=== PATIENT | female | born 1930 | race Caucasian/White ===

== ENCOUNTER 2016-12-06 21:23 | Observation (INO) | payer MEDICARE, OTHER ==
[~2016-12-06] VITALS: Ht 162.6 cm; Wt 74.3 kg
[2016-12-06 21:51] VITALS: BP 185/93; PULSE 66; RESP 16; O2SAT 97
--- NOTE | 2016-12-06 22:25 | ED.REPORT ---
HPI-General Illness Date of Service Dec 06, 2016 ED Provider: Dr. Anthony Ching D.O. An 86 year old female with a history of hypertension, hyperlipidemia, and recent bladder prolapse presents to the ED with nausea and vomiting onset 1630 today. The emesis primarily consists of mucous. The patient also reports urinary incontinence and chronic right-sided nerve pain secondary to a shingles infection four years ago. She recently began taking oxybutynin, with her first dose at 1430 today. Nursing Notes Stated Complaint: VOMITING Chief Complaint: General Complaint Nursing Notes Reviewed: Yes Allergies: Coded Allergies: Penicillins (Verified Allergy, Unknown, 12/06/16) venom-honey bee (Verified Allergy, Unknown, 12/06/16) Scheduled Aspirin Chew (Aspirin Chew) 81 Mg Chew 81 MG PO DAILY Cholecalciferol (Vitamin D3) (Vitamin D3) 2,000 Unit Tablet 2,000 UNIT PO DAILY Cyanocobalamin (Vitamin B-12) (Vitamin B-12) 1,000 Mcg Tablet 1,000 MCG PO DAILY Gabapentin (Gabapentin) 300 Mg Capsule 300 MG PO HS Multivits-Min/FA/Lycopene/Lut (Centrum Silver Tablet) 1 Each Tablet 1 EACH PO DAILY Nadolol (Nadolol) 20 Mg Tablet 20 MG PO DAILY General Time Seen by MD: 22:25 Chief Complaint Vomiting Hx Obtained From: Patient Arrived By: Walk-in Sudden in Onset?: Yes Onset Occurred: 5 - 8 hours ago Symptom Duration: Since onset Severity: Current: No pain currently Severity: Maximum: No pain Associated with: Reports: Pain (Right-sided nerve pain), Denies: Fever Pertinent Negative: Relieved by nothing Context Related History: Reports Recent medication Recent Healthcare: No recent doctor visit Similar Sx Previous: No Past Medical History Past Medical History Bladder prolapse Reports: Hyperlipidemia, Hypertension Past Surgical History None reported Family History noncontributory Smoking History Unknown if Ever Smoker Social History Other Social History: Good social support, Local resident Ambulatory Status Independent Review of Systems + right-sided nerve pain Full Review of Systems Constitutional: Denies: Fever Respiratory: Denies: Non-productive cough, Shortness of breath GI: Reports: Nausea, Vomiting Female: Reports: Incontinence Complete sys rev & neg: except as marked. Physical Exam Vital Signs Vital Signs Date Time Temp Pulse Resp B/P Pulse Ox O2 Delivery O2 Flow Rate FiO2 12/07/16 00:25 36.8 59 16 148/87 100 Room Air 12/06/16 21:51 36.7 66 16 185/93 97 Room Air Initial VS: Reviewed Head / Eyes: Atraumatic, Normocephalic ENT: Conjunctiva normal, No scleral icterus Neck: Supple, Full range of motion Respiratory: Breath sounds normal, Clear to auscultation, No respiratory distress Cardiovascular: Regular rate & rhythm, Heart sounds normal Skin: Warm, Dry, No cyanosis Neurologic: Alert, Oriented, Nonfocal Psychiatric: Mood/affect normal, Behavior normal, Normal thought content General/Constitutional: Awake, Alert, No acute distress Abdomen: Atraumatic Tenderness/Guarding/Rebound: Positive: Tender diffuse Bowel Sounds / Distention: Positive: Distention mild Interpretation & Diagnostics Lab Results Interpretation Result Diagram: 12/06/16235412/06/165 Test 12/06/16 23:55 12/07/16 03:00 White Blood Count 8.6th/mm3 (3.8-10.1) Red Blood Count 4.41mil/mm3 (3.90-5.20) Hemoglobin 14.4g/dL (12.0-15.6) Hematocrit 40.6% (35.0-46.0) Mean Corpuscular Volume 92.1fL (81-100) Mean Corpuscular Hemoglobin 32.7pg (27.0-35.0) Mean Corpuscular Hemoglobin Concent 35.5% (32.0-37.0) Red Cell Distribution Width 12.8% (12.3-15.4) Platelet Count 235bil/L (150-400) Neutrophils (%) (Auto) 63.1% (40-74) Lymphocytes (%) (Auto) 24.9% (14-46) Monocytes (%) (Auto) 9.3% (4-12) Eosinophils (%) (Auto) 2.4% (0-5) Basophils (%) (Auto) 0.3% (0-3) Sodium Level 142mEq/L (134-144) Potassium Level 4.0mEq/L (3.5-5.2) Chloride Level 104mEq/L (97-108) Carbon Dioxide Level 22mmol/L (18-29) Blood Urea Nitrogen 17mg/dL (8-27) Creatinine 0.88mg/dL (0.57-1.00) Estimat Glomerular Filtration Rate 87mL/min (>59) Glucose Level 112mg/dL (60-99) Calcium Level 9.4mg/dL (8.5-10.1) Total Bilirubin 0.6mg/dL (0.0-1.2) Aspartate Amino Transf (AST/SGOT) 20U/L (0-50) Alanine Aminotransferase (ALT/SGPT) 18U/L (0-32) Alkaline Phosphatase 77U/L (25-165) Total Protein 7.4g/dL (6.4-8.4) Albumin 4.1g/dL (3.4-5.0) Hold [place] Top Tube Received (Received) Urine Color Straw (YELLOW) Urine Appearance Clear (CLEAR,HAZY) Urine pH 7.0 (5.0-8.0) Urine Specific [place] 1.010 (1.003-1.035) Urine Protein Negativemg/dL (NEG,TRACE) Urine Glucose (UA) Negativemg/dL (NEGATIVE) Urine Ketones Negativemg/dL (NEGATIVE) Urine Occult Blood Trace (NEGATIVE) Urine Nitrite Negative (NEGATIVE) Urine Bilirubin Negative (NEGATIVE) Urine Urobilinogen Normalmg/dL (NORMAL) Urine Leukocyte Esterase Negative (NEGATIVE) Urine RBC 0-2/hpf (0-2) Urine WBC 0-5/hpf (0-5) Urine Epithelial Cells Few/hpf (NONE-MOD) Urine Crystals None seen (NONE SEEN) Urine Bacteria None/hpf (NONE-FEW) Urine Hyaline Casts None/lpf (NONE) Urine Granular Casts None seen (NONE SEEN) Urine Waxy Casts None seen (NONE SEEN) Urine Red Blood Cell Casts None seen (NONE SEEN) Urine White Blood Cell Casts None seen (NONE SEEN) Urine Mucus None seen (None Seen) Urine Trichomonas None seen (NONE SEEN) Urine Yeast None (NONE SEEN) Urine Culture Reflexed Not indicated ECG Interpretation ECG Interpretation: Sinus bradycardia rate 58 Time: 23:29 Interpreted by: ED physician CT Abd / Pelvis Interpretation CONCLUSION: Hiatal hernia with a dilated fluid-filled distal esophagus. Possibility of a stricture at the gastroesophageal junction should be considered. Diverticulosis. Irregular densities in the lung bases which may be acute or chronic. These may need follow-up. Transmitted to ED by Dr. Jaime Naranjo M.D. at 12/07/2016 - 1:58:29 AM [facility] Study type: Abdominal CT IV contrast Interpretation / Wet Read by: Interpret - Radiologist Re-Eval/Medical Decision Med Decision/Clinical Course 86-year-old female with progressively worsening dysphagia. She is now at the point where she spit up her saliva. She did have some mild epigastric pain and tenderness. Laboratory work is reassuring. She states she is not able to eat or drink for 24 hours white fluid resuscitated her. I gave her a soda pop and she burped most of it up. We CT'd her and it looks like she probably has an esophageal outlet or possibly gastric inlet obstruction. I think she is going to need semiurgent endoscopy and the only way to pull this office to admit her. I spoke with our hospitalist and she concurs and we will admit for GI evaluation. Source of Hx: Old records Time of Eval: 02:49 Patient Status: Condition improved Re-Evaluation/Progress Note: Patient has been burping up her soda. She hasn't been able to eat for over 24 hours without vomiting. She doesn't think her medication is being absorbed. She spit up her ditropan. Discussed with patient CT and lab results, diagnosis, and plan for admit. Patient agrees with plan for care and all questions were addressed. Consultation : Referral / Consult Name: Desi Bonilla DO Consulted With: Hospitalist Call Returned at: 03:04 Underground Drill Operator: Agrees with eval, Agrees with plan, Accepts admit Note: Dr. Bonilla will call GI in the morning. Counseled Regarding: Diagnosis, Lab results, Need for admission Discharge & Departure Primary Impression: Esophageal stricture Additional Impressions: Gastric outlet obstruction Vomiting Vomiting type: unspecified Vomiting Intractability: non-intractable Nausea presence: with nausea Qualified Code: R11.2 - Nausea with vomiting, unspecified Disposition: ADMITTED TO HOSPITAL Discharge Condition All VS Reviewed: Yes Condition: Stable Referrals: NOPCP (PCP) [facility] Sari Attestation Portions of this note were transcribed by Kristy Mitchell. I, Dr. Ching, personally performed the history, physical exam, and medical decision-making; I reviewed and confirmed the accuracy of the information in the transcribed note. Signed by: Sari Joseph, 12/07/2016, 03:05 copies to: [facility] Anthony Ching DO Dec 06, 2016 22:25 KRISTY MITCHELL Dec 06, 2016 22:38
[2016-12-06] MEDS ORDERED: Ondansetron 2 mg/mL 2 mL Inj IVPUSH PRN (22:35)
[2016-12-07] VITALS (10 sets, daily range): BP systolic 120–177; BP diastolic 59–91; PULSE 58–65; RESP 14–18; O2SAT 94–100
[2016-12-07 00:10] LABS: BASOPHILS % (AUTO) 0.3 % (0-3); EOSINOPHILS % (AUTO) 2.4 % (0-5); MONOCYTES % (AUTO) 9.3 % (4-12); Mean Corpuscular Hemoglobin 32.7 pg (27.0-35.0); Mean Corpuscular Volume 92.1 fL (81-100); NEUTROPHILS % (AUTO) 63.1 % (40-74); Platelet Count 235 bil/L (150-400)
[2016-12-07 00:42] LABS: TROPONIN T 0.01 ug/L (0.0-0.011)
[2016-12-07] MEDS ORDERED: Ondansetron 2 mg/mL 2 mL Inj IVPUSH PRN (03:05)
[2016-12-07] MEDS ORDERED: Polyethylene Glycol (PEG) 17 Gm Powder PO PRN (03:05)
[2016-12-07] MEDS ORDERED: Alum-Mag Hydrox-Simeth 30 mL Suspension PO PRN (03:05)
[2016-12-07 03:29] LABS: APPEARANCE,URINE CLEAR (CLEAR,HAZY); COLOR,URINE STRAW (YELLOW); OCCULT BLOOD,URINE TRACE (NEGATIVE); UROBILINOGEN,URINE NORMAL (NORMAL)
[2016-12-07] MEDS ORDERED: 0.9% Sodium Chloride 1,000 ML IV ONE (04:30)
--- NOTE | 2016-12-07 05:41 | NUR ---
Admit to [facility] Received phone report from ED RN Tammie at [phone], pt arrived to floor per ya, accompanied by ED RN and family members, able to assist transfer from [facility] to bed, pt alert/oriented able to make needs known, IV SL on LAC, skin check done with Becca Holden RN, noted bruising on L wrist, unable to finish med-rec r/t pt unable to provide information as of this time, vitals taken, stable, call light in reach, will continue to monitor.
--- NOTE | 2016-12-07 06:32 | PCM.HPMED ---
Subjective Date of Service Dec 07, 2016 Primary Provider: Admitting Physician: Desi Bonilla DO Primary Care Physician: Vic Burgess MD Attending Physician: Desi Bonilla DO Chief Complaint: Nausea and vomiting History of Present Illness: Patient is a pleasant 86-year-old female with hypertension, essential tremor, dyslipidemia and bladder prolapse presenting with nausea and vomiting. The patient is accompanied at bedside by her family. She reports onset of nausea yesterday (12/06/2016) afternoon at approximately 16:30. Patient states she has had issues with swallowing for about the past year, most noticeable when eating meat. As a result she stopped eating meat. Patient reports she was trying to eat some chicken today and had subsequent emesis of mucous-like material. The patient initially attributed her nausea and vomiting to oxybutynin, which was a new medication for her. Her emesis persisted and she reports being unable to keep anything down - solid or liquid, which prompted her to be brought by her family to [facility] ED for further evaluation. In the ED, the patient underwent CT abdomen and pelvis that showed a hiatal hernia with a dilated fluid-filled distal esophagus with concern for the possibility of a stricture at the GE junction. At time of visit the patient reports her nausea is improved with Zofran. Patient reports some associated neck pain from her vomiting but otherwise denies fever, chills, constipation, diarrhea, abdominal pain. In the ED, vitals: temp 36.7, HR 66, RR 16 satting 97% on room air, BP 185/93. Review of Systems: A comprehensive review of systems was conducted with the patient and found to be negative except as above in the History of Present Illness. Allergies Coded Allergies: Penicillins (Verified Allergy, Unknown, 12/06/16) venom-honey bee (Verified Allergy, Unknown, 12/06/16) Home Medications Medication Reconciliation requires completion Nadolol 20mg daily Gabapentin 300mg QHS ASA 81mg daily Centrum silver Vitamin B12 1000mcg daily Vitamin D3 2000mg daily PMH Bladder prolapse Hypertension Dyslipidemia Essential tremor . Surgical History Tonsillectomy Cataracts Hysterectomy Appendectomy Cholecystectomy . 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 Hx Alcohol Use: Yes Alcoholic Drinks Per Day: glass of wine "occassionally" per pt report Hx Substance Use: No Smoking Status: Unknown if Ever Smoker Exam Vital Signs Vital Sign - Last Date Time Temp Pulse Resp B/P Pulse Ox O2 Delivery O2 Flow Rate FiO2 12/07/16 04:04 36.8 65 18 177/91 99 Room Air Intake and Output 12/06/16 12/06/16 12/07/16 Cumulative From/Thru 15:00 23:00 07:00 12/06/16 21:51 - 12/07/16 03:55 Intake Total 1000 ml 1000 ml Balance 1000 ml 1000 ml Intake IV Total 1000 ml 1000 ml Lab and Diagnostics Result Diagram: 12/06/16 2355 12/06/16 2355 X-Rays, CTs and MRIs CT Abd / Pelvis Interpretation CONCLUSION: Hiatal hernia with a dilated fluid-filled distal esophagus. Possibility of a stricture at the gastroesophageal junction should be considered. Diverticulosis. Irregular densities in the lung bases which may be acute or chronic. These may need follow-up. Transmitted to ED by Dr. Jaime Naranjo M.D. at 12/07/2016 - 1:58:29 AM PST Assessment & Plan Patient is a pleasant 86-year-old female with hypertension, essential tremor, dyslipidemia and bladder prolapse presenting with nausea and vomiting and admitted for possible hiatal hernia with a dilated fluid-filled distal esophagus or esophageal stricture. 1. Acute nausea and emesis. Present on admission. Active -CT abdomen/pelvis reads: Hiatal hernia with a dilated fluid-filled distal esophagus. Possibility of a stricture. -NPO -Will need GI consultation for possible endoscopy and further evaluation -Zofran PRN for nausea 2. Hypertension, chronic. Present on admission -Continue nadolol when able to swallow 3. Essential tremor, chronic. Present on admission -Continue nadolol when able to swallow 4. Post-herpetic neuralgia, chronic. Present on admission -Continue gabapentin when able to swallow Medication reconciliation needs completion Patient Status: Patient is admitted under observation status with expected length of stay less than 2 midnights due to severity of presenting symptoms, risk of adverse event, and complexity of treatment plan. VTE Prophylaxis: SCDs Resuscitation Status: DNR/DNI:Do Not Resuscitate/Intubate Attending Statement The patient was seen and examined together with house staff on 12/07/2016 and I agree with the history, exam and plan as outlined in the note above. Neil Nath DO Dec 07, 2016 04:43 Desi Bonilla DO Dec 13, 2016 22:55
--- NOTE | 2016-12-07 08:58 | DRSVH ---
PROCEDURE: CT ABDOMEN AND PELVIS WITH CONTRAST ([id number]) INDICATIONS: VOMITING AND ABDOMINAL PAIN TECHNIQUE: After the administration of intravenous contrast, 5 mm thick sections acquired from the diaphragm to the symphysis. 5 mm coronal and sagittal reformats were acquired. For radiation dose reduction, the following was used: automated exposure control, adjustment of mA and/or kV according to patient siz e. COMPARISON: None. FINDINGS: Image quality: Excellent. ABDOMEN: Lung bases: There is infiltrate in the right middle lobe. There are multiple subpleural nodules or no dular infiltrates in the lower lobes, right greater than left. There are bibasilar pleural parenchyma l scars/atelectasis.. Heart size is normal. There is a moderate-sized hiatal hernia. Mild distentio n of fluid-filled distal esophagus. Solid organs: Liver and spleen are normal in size and enhancement. Gallbladder is not visualized. Biliary system is non dilated. Pancreas enhances normally. No adrenal nodules. Kidneys demonstrate normal size and enhancement, without hydronephrosis. There is a 7 mm indeterminate hypodense nodule in the inferior pole of right kidney. Peritoneum and bowel: Bowel loops demonstrate normal wall thickness and caliber. There are multiple colonic diverticula. No evidence for active diverticulitis. No free fluid or air. Nodes and vessels: No retroperitoneal or mesenteric adenopathy by size criteria. Aorta and inferior vena cava are normal in size. Miscellaneous: Tiny fat-containing umbilical hernia. PELVIS: Genitourinary: Bladder wall thickness is normal. Miscellaneous: No inguinal hernias or adenopathy. Bones: Scoliosis. Severe degenerative disc disease lumbar spine. No suspicious bony lesions. No david tebral body compression fractures. IMPRESSION: 1. Moderate-sized hiatal hernia. There is mild distention of fluid-filled distal esophagus. This find ing can be caused by gastroesophageal reflux or distal esophageal obstruction. If clinically indicate d, double contrast esophagram or upper endoscopy may be helpful for further evaluation. 2. Colonic diverticulosis. No evidence for active diverticulitis. 3. A 7 mm indeterminate low density nodule in the inferior pole of the right kidney. 4. Multiple nodules or nodular infiltrates in the lower lobes, right greater than left. There is a fo tg infiltrate in right middle lobe. Differential diagnoses include aspiration or pneumonia. Recommen d followup to resolution. No significant discrepancy with the morning news producer radiology preliminary report. Dictated by: Doron Weeks M.D. on 12/07/2016 at 8:49 Transcribed by: LANE on 12/07/2016 at 8:58 Approved by: Doron Weeks M.D. on 12/07/2016 at 15:34
[2016-12-07] MEDS ORDERED: NADO20TA PO (09:20)
[2016-12-07] MEDS ORDERED: CHOL200025 PO (09:20)
[2016-12-07] MEDS ORDERED: CYAN10008 PO (09:20)
[2016-12-07] MEDS ORDERED: MULT-1073 PO (09:20)
[2016-12-07] MEDS ORDERED: GABA-502 PO (09:20)
[2016-12-07] MEDS ORDERED: ASPI81TA3 PO (09:20)
[2016-12-07] MEDS ORDERED: Pantoprazole 4 mg/mL 10 mL Inj IVPUSH ONE (12:50)
--- NOTE | 2016-12-07 12:59 | PCM.PNMED ---
Subjective Date of Service Dec 07, 2016 Subjective Nausea/vomiting better but have not taken anything besides some liquids by mouth. His pain related to vomiting, no dyspnea. Overall feeling better. Exam Vital Signs Vital Sign - Last Date Time Temp Pulse Resp B/P Pulse Ox O2 Delivery O2 Flow Rate FiO2 12/07/16 08:59 36.8 58 18 159/80 97 Room Air Intake and Output 12/06/16 12/06/16 12/07/16 Cumulative From/Thru 15:00 23:00 07:00 12/06/16 21:51 - 12/07/16 06:42 Intake Total 1000 ml 1000 ml Output Total 500 ml 500 ml Balance 500 ml 500 ml Intake IV Total 1000 ml 1000 ml Output Urine Total 500 ml 500 ml Exam Gen.- A+ O 3 no apparent distress. Heavy white female sitting up in bed Eyes- open conjunctiva clear, pupils equal nonicteric ENT- ears normal, nose normal Neck- supple/trach midline CVS- RRR no murmur or gallop Lungs- CTA GI- NABS/NT soft Musc- moving 4 no obvious deformity Neuro- cranial nerves II through XII intact to gross examination, nonfocal Skin- warm and dry, no rashes/lesions/wounds noted Psych- pleasant and appropriate, Lab and Diagnostics Result Diagram: 12/06/16 2355 12/06/16 2352 X-Rays, CTs and MRIs CT Abd / Pelvis Interpretation CONCLUSION: Hiatal hernia with a dilated fluid-filled distal esophagus. Possibility of a stricture at the gastroesophageal junction should be considered. Diverticulosis. Irregular densities in the lung bases which may be acute or chronic. These may need follow-up. Transmitted to ED by Dr. Jaime Naranjo M.D. at 12/07/2016 - 1:58:29 AM PST Assessment & Plan Patient is a pleasant 86-year-old female admit 12/06 with nausea and vomiting CT shows dilated fluid-filled distal esophagus and/or esophageal stricture + hiatal hernia. Meds reconciled hopefully everything resuming by mouth status post intervention with GI 12/07. Acute nausea and emesis. Present on admission. Active -CT abdomen/pelvis reads: Hiatal hernia with a dilated fluid-filled distal esophagus. Possibility of a stricture. -NPO -GI consultation (Adriáner called 12/07) set up for EGD and possible dilation -Zofran PRN for nausea Hypertension, chronic. Present on admission -Continue nadolol when able to swallow Essential tremor, chronic. Present on admission -Continue nadolol when able to swallow Post-herpetic neuralgia, chronic. Present on admission -Continue gabapentin when able to swallow Prophylaxis-DVT starting SCDs patient ambulatory so holding off on enoxaparin. GI starting PPI 12/07 Disposition-DNR from home VTE [facility] Resuscitation Status: DNR/DNI:Do Not Resuscitate/Intubate Kurt Blackwood MD Dec 07, 2016 12:59
--- NOTE | 2016-12-07 13:01 | NUR ---
Kathy SOLIS explained/signed by patient. Copy given. Justina CHRISTIAN
[2016-12-07] MEDS ORDERED: fentaNYL-PF 50 mCg/mL 2 mL Inj IVPUSH PRN (13:20)
--- NOTE | 2016-12-07 15:40 | NUR ---
Social Work Initial Assessment: SW met with patient at bedside to discuss discharge plan. Patient is a 86 year old female admitted under observation status on 12/07/16 for vomiting, gastric inlet OBS. Patient payer as Medicare and [employer]. Patient resides in [facility] with daughter Angelica, who assists with care needs. Patient PCP as MD Burgess. Patient states pharmacy of choice as [facility]. Patient has no previous HHC or SNF history. Patient has AD at home and SW encouraged patient to bring in from hospital. Patient has a cane for use at home. Patient states being independent with needs and states having no identified discharge needs at this time. SW to follow pending clinical course. PLAN: Home with daughter via POV, pending clinical course Blair MADSEN Addendum: 12/07/16 at 1545 by LESTER RANDOLPH SS Amended: Links added.
[2016-12-07] MEDS: 0.9% Sodium Chloride 1,000 ML IV SCH ×2 (15:59→21:27)
--- NOTE | 2016-12-07 17:47 | CONS ---
[address] [address] CONSULTATION REPORT PATIENT: TRIPP CHACON : 1930 MR#: [id number] ADMIT: 12/07/2016 JOB ID: [id number] DATE OF SERVICE: 12/07/2016 REQUESTING PROVIDER: Kurt Blackwood MD REASON FOR CONSULTATION: Suspected esophageal stricture. HISTORY OF PRESENT ILLNESS: This is an 86-year-old female who presented to the ER yesterday evening. He with complaints of progressive dysphagia to solids, especially with meats at dinner, over the last couple of months but no weight loss. Last night, however, she could not control any of her secretions, fluids, etc. and anything she attempted to take down she vomited back up. She had a CAT scan accomplished and there was a dilated fluid-filled esophagus suggestive of an outright esophageal obstruction. The patient was admitted to the hospitalist service and I was consulted earlier today to evaluate. ALLERGIES: PENICILLIN AND HONEY BEE VENOM. MEDICATIONS: Aspirin, ibuprofen, Nadolol, gabapentin, vitamin D3, vitamin B12, multivitamin. PAST MEDICAL HISTORY: Bladder prolapse, hypertension, dyslipidemia, essential tremor. PAST SURGICAL HISTORY: Tonsillectomy, cholecystectomy, appendectomy, hysterectomy, cataracts, and intervention for bladder prolapse. FAMILY HISTORY: No GI cancers. SOCIAL HISTORY: The patient is retired. She takes occasional alcohol. No other substances. REVIEW OF SYSTEMS: Apart from the above, review is negative. The patient has not reported any symptoms of GI bleeding. She has intermittent challenges with constipation at times. PHYSICAL EXAMINATION: Blood pressure 153/90, pulse 61, breathing 14, temperature 36.8, 98% on room air. The patient was in no distress. Alert, oriented, appropriate, cooperative, conversational. Lungs were clear bilaterally. Heart regular. No significant peripheral edema. Abdomen is soft. Bowel sounds present. LABORATORIES: CBC was normal. Comprehensive metabolic panel was normal, with the exception of glucose at 112. Troponins were negative. Urinalysis was unremarkable. IMAGING: CT of abdomen and pelvis revealed a moderate-sized hiatal hernia and mild distention of a fluid-filled distal esophagus. She had colonic diverticulosis, a 7-mm indeterminate low-density nodule in the inferior pole of the right kidney. She had multiple nodules in the lower lobes, right greater than left. It was thought that maybe this was related to aspiration or pneumonia. ASSESSMENT AND PLAN: An 86-year-old female with progressive dysphagia to solids over the last two months. She was admitted yesterday with what sounds like an esophageal food impaction. The CT suggests that she was impacted based on the fluid level. The patient is quite reluctant to have tried any fluids today, but at present is not having any problems with her saliva. It is certainly conceivable that the impaction has dissipated spontaneously. EGD is certainly warranted for further evaluation. The risks of the procedure were reviewed with the patient. She wished to proceed. Please see the endoscopy note for further details.
--- NOTE | 2016-12-07 18:18 | NUR ---
GI- Returned from ENDO after procedure. Alert. Denies discomfort. Tolerating liquids and soft diet. Denies nausea. No stools.
--- NOTE | 2016-12-07 21:03 | ENDO ---
[address] [address] ENDOSCOPY PROCEDURE PATIENT: TRIPP CHACON : 1930 MR#: [id number] ADMIT: 12/07/2016 JOB ID: [id number] DATE: 12/07/2016 PRIMARY PROVIDER: Vic Burgess MD. PROCEDURE: Esophagogastroduodenoscopy with biopsies. INDICATIONS: An 86-year-old female with progressive dysphagia x2 months. EQUIPMENT: GIF-160. SEDATION: 3 mg Versed and 75 mcg fentanyl, lidocaine swish and spit. PROCEDURE INFORMATION: After the risks and benefits were explained, written and verbal informed consent was obtained. The patient was brought into the endoscopy suite and placed into the left lateral decubitus position. Sedation was achieved as above. The scope was introduced into the mouth through the bite block and advanced under direct visualization through the oropharynx, down the esophagus, down through the stomach into the second portion of the duodenum. The scope was slowly withdrawn to carefully examine the mucosa for any defects or lesions. Retroflexed views were accomplished in the stomach. The stomach was decompressed. The scope removed from the patient who tolerated the procedure well. FINDINGS: 1. Duodenum: There were some scattered erosive changes throughout the bulb consistent with NSAID-induced injury. No ulcers. No mass lesions apparent. 2. Stomach: No outlet obstruction. Mild gastropathy was seen throughout. Biopsy was taken for exclusion of Helicobacter or any other underlying histopathology. Retroflexed views of the LES disclosed a moderate-sized sliding hiatal hernia with obvious Albino's erosions. 3. Esophagus: The squamocolumnar junction seemed to correlate with the top of the gastric folds which correlated with an irregular, inflamed stricture right at 34 cm from the incisors. I was, however, to get the scope easily to navigate through this without predilating. Lumen size was judged to be perhaps in the 12-13 mm range. Because of the irregularity of this stricture, we took some biopsies although granted it may simply be a consequence of post impaction-related inflammation. The remainder of the esophagus appeared fairly unremarkable. The patient had a fairly tortuous distal esophagus. Multiple photographs were taken. ENDOSCOPIC DIAGNOSES: 1. Inflamed irregular GE junction stricture, status post biopsies. 2. Moderate-sized hiatal hernia with Albino's erosions. 3. Erosive gastroduodenopathy. RECOMMENDATIONS: 1. Await histopathology. 2. The patient should continue b.i.d. oral Protonix. 3. Dysphagia/smoothie diet. 4. Hold aspirin and ibuprofen. 5. Depending on histology, I would suggest repeat EGD with formal dilatation off all NSAIDs x1 week in approximately seven days or so. I will sign off from an inpatient standpoint. From my perspective, the patient could be discharged home with instructions to simply maintain a smoothie dysphagia diet to avoid recurrent impaction.
[2016-12-08 01:01] VITALS: BP 109/63; PULSE 60; RESP 19; O2SAT 97
--- NOTE | 2016-12-08 03:15 | NUR ---
GI Pt had one episode of diarrhea, large amount. Denies nausea or discomfort. Observed sleeping most of night, able to ambulate safely in room. Hourly rounding ongoing.
[2016-12-08 04:57] VITALS: BP 111/72; PULSE 57; RESP 18; O2SAT 96
[2016-12-08] MEDS ORDERED: Pantoprazole 40 mg ER24 Tablet PO SCH (07:30)
--- NOTE | 2016-12-08 07:31 | PCM.DC.MED ---
Discharge Summary Date of Service Dec 08, 2016 Dates of Hospitalization Date of Hospital Admission Dec 07, 2016 at 03:18 Providers: Admitting Physician: Desi Bonilla DO Primary Care Physician: Vic Burgess MD Attending Physician: Desi Bonilla DO Procedures XRay, CTs & MRIs CT Abd / Pelvis Interpretation CONCLUSION: Hiatal hernia with a dilated fluid-filled distal esophagus. Possibility of a stricture at the gastroesophageal junction should be considered. Diverticulosis. Irregular densities in the lung bases which may be acute or chronic. These may need follow-up. Transmitted to ED by Dr. Jaime Naranjo M.D. at 12/07/2016 - 1:58:29 AM PST Brief History Patient is a pleasant 86-year-old female with hypertension, essential tremor, dyslipidemia and bladder prolapse presenting with nausea and vomiting. The patient is accompanied at bedside by her family. She reports onset of nausea yesterday (12/06/2016) afternoon at approximately 16:30. Patient states she has had issues with swallowing for about the past year, most noticeable when eating meat. As a result she stopped eating meat. Patient reports she was trying to eat some chicken today and had subsequent emesis of mucous-like material. The patient initially attributed her nausea and vomiting to oxybutynin, which was a new medication for her. Her emesis persisted and she reports being unable to keep anything down - solid or liquid, which prompted her to be brought by her family to [facility] ED for further evaluation. In the ED, the patient underwent CT abdomen and pelvis that showed a hiatal hernia with a dilated fluid-filled distal esophagus with concern for the possibility of a stricture at the GE junction. At time of visit the patient reports her nausea is improved with Zofran. Patient reports some associated neck pain from her vomiting but otherwise denies fever, chills, constipation, diarrhea, abdominal pain. In the ED, vitals: temp 36.7, HR 66, RR 16 satting 97% on room air, BP 185/93. Hospital Course Patient is a pleasant 86-year-old female admit 12/06 with nausea and vomiting CT shows dilated fluid-filled distal esophagus and/or esophageal stricture + hiatal hernia. Meds reconciled hopefully everything resuming by mouth status post intervention with GI 12/07. Acute nausea and emesis. Present on admission. Active -CT abdomen/pelvis reads: Hiatal hernia with a dilated fluid-filled distal esophagus. Possibility of a stricture. -NPO -GI consultation (Theo called 12/07) set up for EGD and possible dilation -Zofran PRN for nausea Hypertension, chronic. Present on admission -Continue nadolol when able to swallow Essential tremor, chronic. Present on admission -Continue nadolol when able to swallow Post-herpetic neuralgia, chronic. Present on admission -Continue gabapentin when able to swallow Prophylaxis-DVT starting SCDs patient ambulatory so holding off on enoxaparin. GI starting PPI 12/07 Disposition-DNR from home Exam Vital Signs (Last) Date Time Temp Pulse Resp B/P Pulse Ox O2 Delivery O2 Flow Rate FiO2 12/08/16 04:57 36.8 57 18 111/72 96 Room Air Test 12/06/16 23:55 12/07/16 03:00 12/07/16 03:20 White Blood Count 8.6th/mm3 (3.8-10.1) Red Blood Count 4.41mil/mm3 (3.90-5.20) Hemoglobin 14.4g/dL (12.0-15.6) Hematocrit 40.6% (35.0-46.0) Mean Corpuscular Volume 92.1fL (81-100) Mean Corpuscular Hemoglobin 32.7pg (27.0-35.0) Mean Corpuscular Hemoglobin Concent 35.5% (32.0-37.0) Red Cell Distribution Width 12.8% (12.3-15.4) Platelet Count 235bil/L (150-400) Neutrophils (%) (Auto) 63.1% (40-74) Lymphocytes (%) (Auto) 24.9% (14-46) Monocytes (%) (Auto) 9.3% (4-12) Eosinophils (%) (Auto) 2.4% (0-5) Basophils (%) (Auto) 0.3% (0-3) Sodium Level 142mEq/L (134-144) Potassium Level 4.0mEq/L (3.5-5.2) Chloride Level 104mEq/L (97-108) Carbon Dioxide Level 22mmol/L (18-29) Blood Urea Nitrogen 17mg/dL (8-27) Creatinine 0.88mg/dL (0.57-1.00) Estimat Glomerular Filtration Rate 87mL/min (>59) Glucose Level 112mg/dL (60-99) Calcium Level 9.4mg/dL (8.5-10.1) Total Bilirubin 0.6mg/dL (0.0-1.2) Aspartate Amino Transf (AST/SGOT) 20U/L (0-50) Alanine Aminotransferase (ALT/SGPT) 18U/L (0-32) Alkaline Phosphatase 77U/L (25-165) Total Protein 7.4g/dL (6.4-8.4) Albumin 4.1g/dL (3.4-5.0) Hold [place] Top Tube Received (Received) Urine Color Straw (YELLOW) Urine Appearance Clear (CLEAR,HAZY) Urine pH 7.0 (5.0-8.0) Urine Specific [place] 1.010 (1.003-1.035) Urine Protein Negativemg/dL (NEG,TRACE) Urine Glucose (UA) Negativemg/dL (NEGATIVE) Urine Ketones Negativemg/dL (NEGATIVE) Urine Occult Blood Trace (NEGATIVE) Urine Nitrite Negative (NEGATIVE) Urine Bilirubin Negative (NEGATIVE) Urine Urobilinogen Normalmg/dL (NORMAL) Urine Leukocyte Esterase Negative (NEGATIVE) Urine RBC 0-2/hpf (0-2) Urine WBC 0-5/hpf (0-5) Urine Epithelial Cells Few/hpf (NONE-MOD) Urine Crystals None seen (NONE SEEN) Urine Bacteria None/hpf (NONE-FEW) Urine Hyaline Casts None/lpf (NONE) Urine Granular Casts None seen (NONE SEEN) Urine Waxy Casts None seen (NONE SEEN) Urine Red Blood Cell Casts None seen (NONE SEEN) Urine White Blood Cell Casts None seen (NONE SEEN) Urine Mucus None seen (None Seen) Urine Trichomonas None seen (NONE SEEN) Urine Yeast None (NONE SEEN) Urine Culture Reflexed Not indicated Troponin T 0.010ug/L (0.0-0.011) Discharge Medications Discharge Medications Aspirin Chew (Aspirin Chew) 81 Mg Chew 81 MG PO DAILY (Reported) Cholecalciferol (Vitamin D3) (Vitamin D3) 2,000 Unit Tablet 2,000 UNIT PO DAILY (Reported) Cyanocobalamin (Vitamin B-12) (Vitamin B-12) 1,000 Mcg Tablet 1,000 MCG PO DAILY (Reported) Gabapentin (Gabapentin) 300 Mg Capsule 300 MG PO HS (Reported) Multivits-Min/FA/Lycopene/Lut (Centrum Silver Tablet) 1 Each Tablet 1 EACH PO DAILY (Reported) Nadolol (Nadolol) 20 Mg Tablet 20 MG PO DAILY (Reported) Pantoprazole DR (Pantoprazole DR) 40 Mg Tablet.dr 40 MG PO BIDAC Prescribed by: MD Jaison SERRANO,Kurt Esteban MD Dec 08, 2016 07:31
--- NOTE | 2016-12-08 09:02 | PCM.DIMED ---
Discharge Instructions Date of Service Dec 08, 2016 Dates of Hospitalization Dec 07, 2016 at 03:18 Discharge Diagnosis Discharge Diagnosis Tortuous esophagus with esophageal dysmotility Test Results EGD showed tortuous esophagus and irritation around the gastroesophageal juncture possibly related to recent food impaction and or pill esophagitis/ gastritis possibly related to nonsteroidal such as ibuprofen/Naprosyn Diet Other (heart healthy, dysphagia) Call your provider Other (chest pain or food getting caught up) Patient Instructions Modify her diet and masticate food well and cut into small pieces. Make sure that her washing it all down so it ends up in your stomach and is not getting caught up in your esophagus. No nonsteroidals such as Naprosyn/ibuprofen Follow-up plan GI Dr. lGasgow in 1-2 weeks and primary care provider a call Follow-up Provider: Vic Burgess MD Follow-up with PCP in: Other (call) Provider: Turner Glasgow MD Follow-up in: Other (call the office probably in 10-14 days) Kurt Blackwood MD Dec 08, 2016 09:02
[2016-12-08] MEDS ORDERED: PANT40TA3 PO (09:04)
--- NOTE | 2016-12-08 09:04 | PCM.DC.MED ---
Discharge Summary Date of Service Dec 08, 2016 Dates of Hospitalization Date of Hospital Admission Dec 07, 2016 at 03:18 Date of Discharge: Dec 08, 2016 Providers: Admitting Physician: Desi Bonilla DO Primary Care Physician: Vic Burgess MD Attending Physician: Desi Bonilla DO Diagnosis at Time of Discharge Diagnosis at Time of Discharge Tortuous esophagus with esophageal dysmotility Consultations GI thank you Dr. Glasgow Procedures XRay, CTs & MRIs CT Abd / Pelvis Interpretation CONCLUSION: Hiatal hernia with a dilated fluid-filled distal esophagus. Possibility of a stricture at the gastroesophageal junction should be considered. Diverticulosis. Irregular densities in the lung bases which may be acute or chronic. These may need follow-up. Transmitted to ED by Dr. Jaime Naranjo M.D. at 12/07/2016 - 1:58:29 AM PST ECG 12 Lead EKG atrial fibrillation with a rate of 63, QTC [address] segment changes personally/concurrently reviewed by Jaison 12/08 date of EKG 12/06/16 Invasive Procedures EGD 12/07/16 FINDINGS: 1. Duodenum: There were some scattered erosive changes throughout the bulb consistent with NSAID-induced injury. No ulcers. No mass lesions apparent. 2. Stomach: No outlet obstruction. Mild gastropathy was seen throughout. Biopsy was taken for exclusion of Helicobacter or any other underlying histopathology. Retroflexed views of the LES disclosed a moderate-sized sliding hiatal hernia with obvious Albino's erosions. 3. Esophagus: The squamocolumnar junction seemed to correlate with the top of the gastric folds which correlated with an irregular, inflamed stricture right at 34 cm from the incisors. I was, however, to get the scope easily to navigate through this without predilating. Lumen size was judged to be perhaps in the 12-13 mm range. Because of the irregularity of this stricture, we took some biopsies although granted it may simply be a consequence of post impaction-related inflammation. The remainder of the esophagus appeared fairly unremarkable. The patient had a fairly tortuous distal esophagus. Multiple photographs were taken. ENDOSCOPIC DIAGNOSES: 1. Inflamed irregular GE junction stricture, status post biopsies. 2. Moderate-sized hiatal hernia with Albino's erosions. 3. Erosive gastroduodenopathy. RECOMMENDATIONS: 1. Await histopathology. 2. The patient should continue b.i.d. oral Protonix. 3. Dysphagia/smoothie diet. 4. Hold aspirin and ibuprofen. 5. Depending on histology, I would suggest repeat EGD with formal dilatation off all NSAIDs x1 week in approximately seven days or so. I will sign off from an inpatient standpoint. From my perspective, the patient could be discharged home with instructions to simply maintain a smoothie dysphagia diet to avoid recurrent impaction. Turner Glasgow MD 12/07/16 3175 Brief History Patient is a pleasant 86-year-old female with hypertension, essential tremor, dyslipidemia and bladder prolapse presenting with nausea and vomiting. The patient is accompanied at bedside by her family. She reports onset of nausea yesterday (12/06/2016) afternoon at approximately 16:30. Patient states she has had issues with swallowing for about the past year, most noticeable when eating meat. As a result she stopped eating meat. Patient reports she was trying to eat some chicken today and had subsequent emesis of mucous-like material. The patient initially attributed her nausea and vomiting to oxybutynin, which was a new medication for her. Her emesis persisted and she reports being unable to keep anything down - solid or liquid, which prompted her to be brought by her family to [facility] ED for further evaluation. In the ED, the patient underwent CT abdomen and pelvis that showed a hiatal hernia with a dilated fluid-filled distal esophagus with concern for the possibility of a stricture at the GE junction. At time of visit the patient reports her nausea is improved with Zofran. Patient reports some associated neck pain from her vomiting but otherwise denies fever, chills, constipation, diarrhea, abdominal pain. In the ED, vitals: temp 36.7, HR 66, RR 16 satting 97% on room air, BP 185/93. Hospital Course Patient is a pleasant 86-year-old female admit 12/06 with nausea and vomiting CT shows dilated fluid-filled distal esophagus and/or esophageal stricture + hiatal hernia. Meds reconciled hopefully everything resuming by mouth status post intervention with GI 12/07. Acute nausea and emesis. Present on admission. Active -CT abdomen/pelvis reads: Hiatal hernia with a dilated fluid-filled distal esophagus. Possibility of a stricture. -NPO -GI consultation (Theo called 12/07) set up for EGD and possible dilation -Zofran PRN for nausea Hypertension, chronic. Present on admission -Continue nadolol when able to swallow Essential tremor, chronic. Present on admission -Continue nadolol when able to swallow Post-herpetic neuralgia, chronic. Present on admission -Continue gabapentin when able to swallow Prophylaxis-DVT starting SCDs patient ambulatory so holding off on enoxaparin. GI starting PPI 12/07 Disposition-DNR from home Exam Vital Signs (Last) Date Time Temp Pulse Resp B/P Pulse Ox O2 Delivery O2 Flow Rate FiO2 12/08/16 04:57 36.8 57 18 111/72 96 Room Air Exam Gen.- A+ O 3 no apparent distress. Heavy white female sitting up in bed having breakfast Eyes- open conjunctiva clear, pupils equal nonicteric ENT- ears normal, nose normal Neck- supple/trach midline CVS-normal rate Lungs- normal rate, no evidence of accessory muscle usage GI- generous pannus Musc- moving 4 no obvious deformity Neuro- cranial nerves II through XII intact to gross examination, nonfocal Skin- warm and dry, no rashes/lesions/wounds noted Psych- pleasant and appropriate, Test 12/06/16 23:55 12/07/16 03:00 12/07/16 03:20 White Blood Count 8.6th/mm3 (3.8-10.1) Red Blood Count 4.41mil/mm3 (3.90-5.20) Hemoglobin 14.4g/dL (12.0-15.6) Hematocrit 40.6% (35.0-46.0) Mean Corpuscular Volume 92.1fL (81-100) Mean Corpuscular Hemoglobin 32.7pg (27.0-35.0) Mean Corpuscular Hemoglobin Concent 35.5% (32.0-37.0) Red Cell Distribution Width 12.8% (12.3-15.4) Platelet Count 235bil/L (150-400) Neutrophils (%) (Auto) 63.1% (40-74) Lymphocytes (%) (Auto) 24.9% (14-46) Monocytes (%) (Auto) 9.3% (4-12) Eosinophils (%) (Auto) 2.4% (0-5) Basophils (%) (Auto) 0.3% (0-3) Sodium Level 142mEq/L (134-144) Potassium Level 4.0mEq/L (3.5-5.2) Chloride Level 104mEq/L (97-108) Carbon Dioxide Level 22mmol/L (18-29) Blood Urea Nitrogen 17mg/dL (8-27) Creatinine 0.88mg/dL (0.57-1.00) Estimat Glomerular Filtration Rate 87mL/min (>59) Glucose Level 112mg/dL (60-99) Calcium Level 9.4mg/dL (8.5-10.1) Total Bilirubin 0.6mg/dL (0.0-1.2) Aspartate Amino Transf (AST/SGOT) 20U/L (0-50) Alanine Aminotransferase (ALT/SGPT) 18U/L (0-32) Alkaline Phosphatase 77U/L (25-165) Total Protein 7.4g/dL (6.4-8.4) Albumin 4.1g/dL (3.4-5.0) Hold [place] Top Tube Received (Received) Urine Color Straw (YELLOW) Urine Appearance Clear (CLEAR,HAZY) Urine pH 7.0 (5.0-8.0) Urine Specific [place] 1.010 (1.003-1.035) Urine Protein Negativemg/dL (NEG,TRACE) Urine Glucose (UA) Negativemg/dL (NEGATIVE) Urine Ketones Negativemg/dL (NEGATIVE) Urine Occult Blood Trace (NEGATIVE) Urine Nitrite Negative (NEGATIVE) Urine Bilirubin Negative (NEGATIVE) Urine Urobilinogen Normalmg/dL (NORMAL) Urine Leukocyte Esterase Negative (NEGATIVE) Urine RBC 0-2/hpf (0-2) Urine WBC 0-5/hpf (0-5) Urine Epithelial Cells Few/hpf (NONE-MOD) Urine Crystals None seen (NONE SEEN) Urine Bacteria None/hpf (NONE-FEW) Urine Hyaline Casts None/lpf (NONE) Urine Granular Casts None seen (NONE SEEN) Urine Waxy Casts None seen (NONE SEEN) Urine Red Blood Cell Casts None seen (NONE SEEN) Urine White Blood Cell Casts None seen (NONE SEEN) Urine Mucus None seen (None Seen) Urine Trichomonas None seen (NONE SEEN) Urine Yeast None (NONE SEEN) Urine Culture Reflexed Not indicated Troponin T 0.010ug/L (0.0-0.011) Discharge Medications Discharge Medications Aspirin Chew (Aspirin Chew) 81 Mg Chew 81 MG PO DAILY (Reported) Cholecalciferol (Vitamin D3) (Vitamin D3) 2,000 Unit Tablet 2,000 UNIT PO DAILY (Reported) Cyanocobalamin (Vitamin B-12) (Vitamin B-12) 1,000 Mcg Tablet 1,000 MCG PO DAILY (Reported) Gabapentin (Gabapentin) 300 Mg Capsule 300 MG PO HS (Reported) Multivits-Min/FA/Lycopene/Lut (Centrum Silver Tablet) 1 Each Tablet 1 EACH PO DAILY (Reported) Nadolol (Nadolol) 20 Mg Tablet 20 MG PO DAILY (Reported) Pantoprazole DR (Pantoprazole DR) 40 Mg Tablet.dr 40 MG PO BIDAC Prescribed by: KAITLYN VILLALBA MD Additional med instructions Avoid nonsteroidals Followup Plan Disposition: Patient going home Follow-up plan GI Dr. Glasgow in 1-2 weeks and primary care provider a call Discharge Diet: Other (heart healthy, dysphagia) Patient Instructions Modify her diet and masticate food well and cut into small pieces. Make sure that her washing it all down so it ends up in your stomach and is not getting caught up in your esophagus. No nonsteroidals such as Naprosyn/ibuprofen Follow-up Provider: Vic Burgess MD Follow-up with PCP in: Other (call) Provider: Turner Glasgow MD Follow-up in: Other (call the office probably in 10-14 days) Time spent Greater than 30 minutes copies to: Vic Burgess MD; Turner Glasgow MD, Andris E MD Dec 08, 2016 09:04
--- NOTE | 2016-12-08 10:26 | NUR ---
Discharge pt d/c'd home at 1025. Reviewed d/c instruction w/ patient and her daughter. Answered all questions. IV d/c'd intact. Pt denied offer for w/c to her daughter's car and left w/ strong steady gait and all belongings. Rx faxed to pharmacy.
--- NOTE | 2016-12-08 10:29 | NUR ---
Social Work Discharge: SW acknowledged order for discharge. Plan remains as home with daughter support and care who to assist with needs at home. No anticipated discharge needs identified at this time. SW to follow as needs arise. PLAN: Home with daughter, via POV. No anticipated discharge needs Blair MADSEN
--- NOTE | 2016-12-09 16:33 | PATH ---
SURGICAL PATHOLOGY Attending Physician:Gina Moore CASE STATUS: Signed Out PATIENT NAME: TRIPP CHACON PID: [id number] : 1930 DATE COLLECTED:12/07/2016 00:00 SPECIMEN: 1: Gastric, Biopsy 2: Esophagus, Biopsy CLINICAL HISTORY: A: GASTRIC B: GEJ STRICTURE FINAL DIAGNOSIS: 1.STOMACH, BIOPSY: BODY-TYPE MUCOSA WITH NO DIAGNOSTIC ABNORMALITY. Negative for Helicobacter organisms. Negative for intestinal metaplasia. Negative for dysplasia and malignancy. 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 Negative for dysplasia and malignancy. ICD10 code K22.70 NOTE: As part of a routine manufacturing quality inspector, Dr. Owen Manuel has also reviewed part B of this case and agrees with the diagnosis. GROSS DESCRIPTION: The specimen is received in two formalin filled containers labeled with the patient's name. 1). The specimen is sublabeled "gastric" and consists of a 0.4 x 0.3 x 0.2 CM portion of tissue which is entirely submitted in cassette 1A. 2). The specimen is sublabeled "GEJ stricture" and consists of 2 portions of tissue which aggregate to 0.2 x 0.2 x 0.2 CM. The specimen is entirely submitted in cassette 2A. 12/08/2016 [facility] MICRO DESCRIPTION: See diagnosis. ICD-9 CODES: CPT CODES: 1: 18523 2: 68596 Electronically Signed Out Alejandra Shipman MD [facility] [address], [place] [address] Technical component performed at [facility], [facility] [address], [place], [address]
[2016-12-21] MEDS ORDERED: DOCU240C41 PO (09:25)
[2016-12-21] MEDS ORDERED: OXYB5TAB10 PO (09:25)
[2016-12-21] MEDS ORDERED: MULT-1073 PO (09:25)
== END 2016-12-08 10:25 | disposition home or self-care (01) ==
LOC: SED 21:23 → OBSVTOIN 12-07 03:18 → OSC 12-07 03:18 → INTOOBSV 12-07 03:18 → OSC 12-07 03:41
PROVIDERS: ADMIT Internal Medicine; ATTEND Internal Medicine
DX: K22.10 Ulcer of esophagus without bleeding (principal); K44.9 Diaphragmatic hernia without obstruction or gangrene; I10 Essential (primary) hypertension; B02.29 Other postherpetic nervous system involvement; G25.0 Essential tremor
CPT/HCPCS: 36415; 43239; 74177; 80053; 81000; 84484; 85025; 88305; 93005; 96361; 96374; 99285; G0378; G0500; J2405; J7030; Q9967

== ENCOUNTER 2016-12-22 13:51 | Day surgery (SDC) | payer MEDICARE, OTHER ==
[~2016-12-22] VITALS: Ht 162.6 cm; Wt 72.7 kg
[~2016-12-22 13:51] MED LIST: ASPI81TA3 PO; CHOL200025 PO; CYAN10008 PO; DOCU240C41 PO; GABA-502 PO; MULT-1073 PO; NADO20TA PO; OXYB5TAB10 PO; PANT40TA3 PO; Sodium Chloride LOK Flush 10 mL Syringe IV PRN; fentaNYL-PF 50 mCg/mL 2 mL Inj IVPUSH PRN
[2016-12-22 14:30] VITALS: BP 176/92; PULSE 54; RESP 16; O2SAT 98
[2016-12-22] MEDS: 0.9% Sodium Chloride 1,000 ML IV SCH ×2 (16:42→17:03)
[2016-12-22 17:12] VITALS: BP 175/88; PULSE 92; RESP 15; O2SAT 93
[2016-12-22 17:22] VITALS: BP 174/90; PULSE 90; RESP 15; O2SAT 96
[2016-12-22 17:32] VITALS: BP 176/90; PULSE 90; RESP 15; O2SAT 95
--- NOTE | 2016-12-22 20:19 | ENDO ---
[address] [address] ENDOSCOPY PROCEDURE PATIENT: TRIPP CHACON : 1930 MR#: [id number] ADMIT: 12/22/2016 JOB ID: [id number] DATE: 12/22/2016 PRIMARY PROVIDER: Vic Burgess MD. PROCEDURE: Esophagogastroduodenoscopy with balloon dilatation. INDICATIONS: An 86-year-old female with dysphagia, large hiatal hernia and short-segment Altamirano's with Schatzki returning for dilatation. EQUIPMENT: GIF-180. SEDATION: 3 mg Versed, 100 mcg fentanyl. COMPLICATIONS: None identified. PROCEDURE IN DETAIL: After the risks and benefits were explained, written and verbal informed consent was obtained. The patient was brought into the endoscopy suite and placed into the left lateral decubitus position. Sedation was achieved as above. The scope was introduced in the mouth through the bite block, and advanced under direct visualization to the second portion of the duodenum. The scope was slowly withdrawn to carefully examine the mucosa for any defects or lesions. Retroflexed views were accomplished in the stomach. The stomach was decompressed. The scope removed from the patient who tolerated the procedure well. FINDINGS: 1. Duodenum: No pathology from the bulb through to the second portion. 2. Stomach: No significant pathology apart from moderate hiatal hernia seen in retroflexed position. No outlet obstruction. No ulcers. No mass lesions. 3. Esophagus: The squamocolumnar junction correlated roughly with the gastroesophageal junction which was at approximately 32 cm from the incisors. This also corresponded with the Schatzki ring and again there was an element of what appeared to be Altamirano's mucosa involving or overlapping the ring especially in the 9 o'clock location. All of the previously identified inflammation appears to have completely abated. We sequentially dilated the Schatzki ring using a 12-15 mm balloon over the guidewire and then a 15-18 mm balloon. We did not cause any major structural damage to the Schatzki ring with the effect that it did appear to have stretched it and dilated at this level. Otherwise, the esophagus was unremarkable, slightly tortuous in the distal course. ENDOSCOPIC DIAGNOSES: 1. Moderate sliding hiatal hernia. 2. Short Altamirano's. 3. Schatzki status post dilatation to 18 mm. RECOMMENDATIONS: 1. Continue pantoprazole once daily. 2. Follow up in my office in 4-6 weeks. 3. Well chewed food swallowed in small portions is certainly authorized moving forward from today.
== END 2016-12-22 23:59 | disposition home or self-care (01) ==
LOC: END 13:51
PROVIDERS: ATTEND Internal Medicine Gastroenterology
DX: K22.2 Esophageal obstruction (principal); K44.9 Diaphragmatic hernia without obstruction or gangrene; K22.70 Barrett's esophagus without dysplasia
CPT/HCPCS: 43249; 99153; G0500; J2250; J3010; J7030